=== PATIENT | female | born 1995 | race African-American/Black ===

== ENCOUNTER 2017-10-23 14:14 | Emergency (ER) | payer MEDICAID, OTHER ==
[~2017-10-23] VITALS: Ht 162.6 cm; Wt 85.0 kg
[~2017-10-23 14:14] MED LIST: IBUP800T23 PO
[2017-10-23 14:45] VITALS: BP 132/77; PULSE 92; RESP 17; TEMP 98.3; O2SAT 100
[2017-10-23] MEDS ORDERED: FLUCONAZOLE 100 MG TAB PO ONE (15:45)
--- NOTE | 2017-10-23 16:02 | PD ---
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 States she has had multiple yeast infections in the past this feels similar. Denies any risk factors for STI's. Recent STI testing was negative. A little bit of urinary discomfort. No pelvic pain or dysuria. No other complaints. History Past Medical History Medical History: Denies Significant Hx Tetanus Vaccination: < 5 Years LMP: 09/2017 : 0 Para: 0 Social History Alcohol Use: Yes (SOCIALLY) Tobacco Use: No Allergies-Medications (Allergen,Severity, Reaction): Coded Allergies: azithromycin (Unverified Allergy, Severe, 10/23/17) HIVES Reported Meds & Prescriptions Reported Meds & Active Scripts Active No Active Prescriptions or Reported Medications Review of Systems Except as stated in HPI: all other systems reviewed are Neg Physical Exam Narrative GENERAL: Well-appearing 22-year-old woman, no acute distress. SKIN: Warm and dry. CARDIOVASCULAR: Warm and well perfused. RESPIRATORY: Normal rate and effort. NEUROLOGICAL: Awake and alert. No gross deficits. Data Data Last Documented VS Vital Signs Date Time Temp Pulse Resp B/P (MAP) Pulse Ox O2 Delivery O2 Flow Rate FiO2 10/23/17 14:45 98.3 92 17 132/77 (95) 100 Orders Orders Fluconazole (Diflucan) (10/23/17 15:45) MDM Medical Decision Making Medical Screen Exam Complete: Yes Emergency Medical Condition: Yes Differential Diagnosis Urethritis, cervicitis, vaginitis, other Narrative Course Medical decision making Is a 22-year-old presents emergency department complaining of yeast infection. Discussed differential diagnosis including bacterial vaginosis and cervicitis. Patient feels confident disease infection, was offered pelvic exam and further evaluation but would like to try empiric treatment for yeast infection will return for worsening symptoms. She agrees to follow-up with gynecology. Diagnosis Primary Impression: Vaginitis Additional Instructions: Follow-up with gynecology as discussed. Med/Other Pt SpecificInfo: No Change to Meds Scripts No Active Prescriptions or Reported Meds Disposition: 01 DISCHARGE HOME Condition: Stable Ben Mukherjee MD Oct 23, 2017 16:02
== END 2017-10-23 16:18 | disposition home or self-care (01) ==
LOC: NEPD 14:14
DX: N76.0 Acute vaginitis (principal); Z88.1 Allergy status to other antibiotic agents
CPT/HCPCS: 99283